=== PATIENT | male | born 1965 | race Caucasian/White ===

== ENCOUNTER 2024-01-05 08:09 | Emergency (ER) | payer BC, SELFPAY ==
[2024-01-05 08:12] VITALS: BP 159/93
[2024-01-05 08:33] VITALS: BMI 25.9
--- NOTE | 2024-01-05 08:34 | ED.GENMED ---
History of Present Illness
<Chon Almanza PA-C - Last Filed: 01/05/24 12:33>
General
Chief Complaint: Chest Pain
Source: patient
Time Seen by Provider: 01/05/24 08:22
History of Present Illness
History of Present Illness:
58-year-old male with past medical history of HIV (controlled with medications) presenting to the emergency department for evaluation of left-sided chest discomfort that started around 1 week ago described to be an intermittent pain lasting only 1
to 2 minutes and then resolving, randomly occurring, dull, nonradiating and would often be relieved gentle massage to the left side of the chest but had seemed resolved over the last 1 to 2 days but this morning upon awakening patient had a coughing
spell and then noticed slightly more discomfort to the left side of his chest around the nipple area but has been more constant and is not relieved palpation. Patient also noted that he had a little coughing spell upon awakening but notes he is not
coughing constantly. Patient also notes that he felt a little lightheaded and nauseous this morning and that when he got up to go to the bathroom he noticed his heart rate went up above 100 according to his FitBit which she states is abnormal for
him. Patient is otherwise denying any shortness of breath, exertional dyspnea, orthopnea, peripheral edema/pain, hemoptysis, pleurisy, abdominal pain or any other concerns. Social history was noted for a little increased alcohol intake this past
weekend as patient and his significant other had friends over and they had a few drinks per night. Family history was noted for patient's father having CABG.
Past History
<Chon Almanza PA-C - Last Filed: 01/05/24 12:33>
Past History
ED Past Medical History: Other (HIV)
ED Past Surgical History: None
Social History
Tobacco: Non-smoker
Alcohol: Occasional
Drug: None
Personal:
Living: with family
Employment: Employed
Review of Systems
<Chon Almanza PA-C - Last Filed: 01/05/24 12:33>
Review of Systems
All Other Systems: ROS reviewed and negative except as documented in HPI and ROS
Phy Exam
<Chon Almanza PA-C - Last Filed: 01/05/24 12:33>
Physical Exam
Physical Exam:
GENERAL: Alert , in no apparent distress
EYE: Clear conjunctiva
NECK: Supple
ENT: o/p clr, mmm.
CARDIAC: Regular rate and rhythm, no murmur.
LUNGS: Clear breath sounds bilaterally, no acute respiratory distress, no wheezes/rales/rhonchi
ABDOMEN: Soft, without focal tenderness, no r/g, no cvat
NEUROLOGICAL: Alert and oriented
SKIN: Warm and dry, skin intact.
MUSCULOSKELETAL: No edema, well perfused.
PSYCH: Normal and appropriate interaction.
Scores
<Chon Almanza PA-C - Last Filed: 01/05/24 12:33>
Heart Failure Risk
Heart Failure Risk Score: Not Applicable
Heart Score for Chest Pain Patients
STEMI patient?: No
History: Slightly or Non-Suspicious
ECG: Normal
Age: >45 - <65 years
Risk Factors: 1 or 2 Risk Factors
Troponin: </= Normal Limit
Heart Score for Chest Pain Patients: 2
Heart Score Risk: 2.5% MACE over next 6 weeks
Withdrawal Assessment of Alcohol
Withdrawal Assessment Completed?: Not applicable
<Cristy Caceres MD - Last Filed: 01/05/24 09:12>
Heart Score for Chest Pain Patients
Heart Score for Chest Pain Patients: 2
Heart Score Risk: 2.5% MACE over next 6 weeks
Course
<Chon Almanza PA-C - Last Filed: 01/05/24 12:33>
Orders/Labs/Results
Orders:
Orders
01/05/24 08:11
ECG [Electrocardiogram (*1)] Urgent
Reason for Study: Chest Pain
EKG- Treatment ONCE
01/05/24 08:20
Cardiac Monitoring- Treatment ONCE
IV Insert/Care/Rem.- Treatment PRN
01/05/24 08:31
Complete Blood Count/With Diff Urgent
Comprehensive Metabolic Panel Urgent
Troponin I Urgent
01/05/24 08:34
CR Chest - 2 Views Urgent
Comment:
Reason For Exam: left sided chest pain
01/05/24 11:26
Troponin I Urgent
01/05/24 11:33
ECG [Electrocardiogram (*1)] Urgent
Reason for Study: Chest Pain
EKG- Treatment ONCE
Abnormal Lab Results
01/05/24
08:31
RBC 4.52 L 10^6/uL
(4.70-6.10)
MCH 31.9 H pg
(27.0-31.0)
01/05/24 08:31
01/05/24 08:31
Vital Signs
Initial and Last Documented VS:
Initial Vital Signs
Temp Pulse Resp BP Pulse Ox
98.3 F 91 20 159/93 100
01/05/24 08:12 01/05/24 08:12 01/05/24 08:12 01/05/24 08:12 01/05/24 08:12
Last Documented Vital Signs
Temp Pulse Resp BP Pulse Ox
98.3 F 67 14 114/84 97
01/05/24 08:12 01/05/24 11:30 01/05/24 11:30 01/05/24 11:00 01/05/24 11:30
<Cristy Caceres MD - Last Filed: 01/05/24 09:12>
Orders/Labs/Results
Orders:
Orders
01/05/24 08:11
ECG [Electrocardiogram (*1)] Urgent
Reason for Study: Chest Pain
EKG- Treatment ONCE
01/05/24 08:20
Cardiac Monitoring- Treatment ONCE
IV Insert/Care/Rem.- Treatment PRN
01/05/24 08:31
Complete Blood Count/With Diff Urgent
Comprehensive Metabolic Panel Urgent
Troponin I Urgent
01/05/24 08:34
CR Chest - 2 Views Urgent
Comment:
Reason For Exam: left sided chest pain
01/05/24 11:26
Troponin I Urgent
01/05/24 11:33
ECG [Electrocardiogram (*1)] Urgent
Reason for Study: Chest Pain
EKG- Treatment ONCE
Abnormal Lab Results
01/05/24
08:31
RBC 4.52 L 10^6/uL
(4.70-6.10)
MCH 31.9 H pg
(27.0-31.0)
01/05/24 08:31
01/05/24 08:31
Vital Signs
Initial and Last Documented VS:
Initial Vital Signs
Temp Pulse Resp BP Pulse Ox
98.3 F 91 20 159/93 100
01/05/24 08:12 01/05/24 08:12 01/05/24 08:12 01/05/24 08:12 01/05/24 08:12
Last Documented Vital Signs
Temp Pulse Resp BP Pulse Ox
98.3 F 67 14 114/84 97
01/05/24 08:12 01/05/24 11:30 01/05/24 11:30 01/05/24 11:00 01/05/24 11:30
<Chon Almanza PA-C - Last Filed: 01/05/24 12:33>
MDM/Problems Addressed
Differential Diagnosis Includes:
ACS/angina considered however given patient's history I am a little less suspicious for this diagnosis, GERD/gastritis given take over the weekend, PE considered given patient's coughing spell upon awakening however given no pleurisy/shortness of
breath or risk factors for DVT/PE I am also less suspicious for this diagnosis
MDM/Problems Addressed:
58-year-old male presenting emergency department for evaluation of left-sided chest discomfort that started last week, seemingly resolved for 1 to 2 days but returns was somewhat different this morning as there was accompanied lightheadedness as
well as nausea. Patient arrives hemodynamically stable in no acute distress. Pain is not reproducible with palpation. EKG done in triage nonischemic. Patient has minimal risk factors for cardiac disease. He does follow with a repair order clerk in
[place] and had an echocardiogram done last year and reports this was unremarkable. He also had a stress test done within the last few years which was also within normal limits. Patient states that he follows with cardiology because a few
years ago he started experiencing palpitations intermittently and wore a Holter monitor but that there was no abnormal findings. Incidentally patient has a follow-up appointment with his repair order clerk already scheduled for this coming .
Will check 3-hour troponin. If unremarkable feel patient will be stable for discharge and follow-up with his repair order clerk as he already has scheduled this week.
<Chon Almanza PA-C - Last Filed: 01/05/24 12:33>
*Radiology
Radiology exam reviewed: preliminary read by ED provider (normal CXR)
*Pulse Oximetry
Patient hypoxic: no
*EKG
Interpreted by ED Provider?: Yes
Comparison EKG: no comparison EKG present
Heart Rate: 88
Rate: normal
Rhythm: sinus
[place]: normal axis
Ischemia: no ischemia
*Nutrition Representative Interpretation
Rate: normal
Rhythm: sinus
*Critical Care Note
Total Time (30-74mins, 75-104mins- exclusive of procedures): Not Applicable
<Chon Almanza PA-C - Last Filed: 01/05/24 12:33>
Comment
Comment:
9:22 AM: Patient resting comfortably in no acute distress. Awaiting 3-hour troponin. If normal anticipate discharge home.
Patient Management
Escalation/DeEscalation of care consider admission/obs:
Patient's repeat troponin and EKG remain unremarkable and without signs of ischemia. He is stable for discharge home. He will follow-up with cardiology as planned on .
ED Attending Note
<Chon Almanza PA-C - Last Filed: 01/05/24 12:33>
-
Portions of this chart may have been created with voice recognition software.� Occasional wrong word or��sound alike� substitutions may have occurred due to the inherent limitations of voice recognition software.
<Cristy Caceres MD - Last Filed: 01/05/24 09:12>
ED Attending Note
Patient seen and examined by attending physician: Yes
I performed the substantive portion of visit, reviewed & personally made and approve the management plan that is documented in note by myself or ALVA.: Yes
ED Attending Note:
58 yr old male with c/o L acw pain today that was 'deeper' and different than on and off 'muscular' L sided cp he's had for a week. No assoc n/v/diaphoresis/sob/leg swelling/neck pain/back pain/headache. Not sudden in onset, no radiation. Last
echo one year ago was nl but for congenital slightly enlarged ascending aorta, and cards told him 'salt is your friend'. On exam, extremely well ap pearing, in nad, hrt rrr, lungs cta. Doubt acs/pe/dissection/ptx etc. Cxr and ecg read by me,
unremkarable. Will continue w/u and likely will be discharged with cards f/u.
Discharge Plan
Departure
Patient Disposition: Home (Routine Discharge)
Date of Disposition: 01/05/24
Time of Disposition: 12:06
Patient with high blood pressure during this ER visit?: Yes
Discharge Problem:
Chest pain
Instructions: Chest Pain That Is Not Caused by the Heart (DC)
Prescriptions:
No Action
amoxicillin-pot clavulanate 1 TABLET tablet
1 tab PO TID Qty: 20 0RF
Referrals:
Giancarlo López MD [Family Provider] -
Interventions
Interventions:
*Risk Screen - Suicide Last Done: 01/05/24 08:12
*General Assessment Last Done: 01/05/24 08:12
*Neglect/Abuse Screening Last Done: 01/05/24 08:12
ED- Fall Risk Assessment Last Done: 01/05/24 08:32
*Nursing Disposition Last Done: 01/05/24 12:18
ED- Cardiac Assessment Last Done: 01/05/24 08:32
Discharge Date and Time
Print Language: ARMENIAN
[2024-01-05 08:46] LABS: % Basophils 0.6 % (0-2); % Eosinophils 2.5 % (0-6); % Immature Granulocytes 0.4 % (0-0.5); % Lymphocytes 31.7 % (20.5-51.1); % Monocytes 8.1 % (1.7-9.3); % Neutrophils 56.7 % (42.2-75.2); Absolute Eosinophils 0.2 10^3/uL (0-0.7); Absolute Lymphocytes 2.2 10^3/uL (1.2-3.4); Absolute Monocytes 0.6 10^3/uL (0.1-0.6); Absolute Neutrophils 3.9 10^3/uL (1.4-6.5); Hematocrit 39.5 % (39.0-52.0); Hemoglobin 14.4 g/dL (13.0-18.0); Mean Corp Hgb Conc. 36.5 g/dL (33.0-37.0); Mean Corpuscular Hgb 31.9 pg (27.0-31.0); Mean Corpuscular Volume 87.4 fL (80.0-94.0); Mean Platelet Volume 9.7 fL (7.4-10.4); Nucleated Red Blood Cells % 0 % (-); Platelet Count 193 10^3/uL (130-400); Red Blood Cell Count 4.52 10^6/uL (4.70-6.10); White Blood Cell Count 6.8 10^3/uL (4.8-10.8)
[2024-01-05 09:11] LABS: Troponin I < 0.012 ng/ml
[2024-01-05 09:13] VITALS: BP 114/85
[2024-01-05 09:15] LABS: ALT (SGPT) 22 U/L (0-50); AST (SGOT) 27 U/L (17-59); Albumin 4.6 g/dl (3.5-5.0); Alkaline Phosphatase 60 U/L (38-126); Blood Urea Nitrogen 11 mg/dl (9-20); Calcium 9.3 mg/dl (8.4-10.2); Carbon Dioxide 26 mmol/L (22-30); Chloride 103 mmol/L (98-107); Estimated Creatinine Clearance 108 ml/min; Glucose 97 mg/dl (70-99); Potassium 4.2 mmol/L (3.5-5.1); Sodium 136 mmol/L (135-145); Total Bilirubin 0.7 mg/dl (0.2-1.3); eGFR > 60.00
[2024-01-05 10:13] VITALS: BP 118/80
[2024-01-05 11:00] VITALS: BP 114/84
[2024-01-05 12:04] LABS: Troponin I < 0.012 ng/ml
== END 2024-01-05 12:53 | disposition home or self-care (01) ==
LOC: EMR 08:09
PROVIDERS: Physician Assistant Medical; EMERGENCY PHYSICIAN Emergency Medicine; FAMILY PHYSICIAN Internal Medicine Infectious Disease
DX: R07.89 Other chest pain (principal); R42 Dizziness and giddiness; R11.0 Nausea; R05.9 Cough, unspecified; R03.0 Elevated blood-pressure reading, without diagnosis of hypertension; Z21 Asymptomatic human immunodeficiency virus [HIV] infection status; Z79.899 Other long term (current) drug therapy; Z88.1 Allergy status to other antibiotic agents; Z91.011 Allergy to milk products
CPT/HCPCS: 99284; 71046; 80053; 84484; 85025; 93005